=== PATIENT | female | born 1970 | race Caucasian/White ===

== ENCOUNTER → 2017-03-15 | Outpatient (CLI) | payer OTHER ==
[~2017-03-15] MED LIST: NONE PER PT
== END | disposition home or self-care (01) ==
LOC: STAR 07:49
PROVIDERS: ATTEND Obstetrics & Gynecology Female Pelvic Medicine and Reconstructive Surgery
DX: Z02.9 Encounter for administrative examinations, unspecified (principal)

== ENCOUNTER 2017-03-19 08:59 | Day surgery (SDC) | payer OTHER ==
[~2017-03-19] VITALS: Ht 152.4 cm; Wt 61.5 kg
[~2017-03-19 08:59] MED LIST changes: +BUPIVACAINE/PF-EPI 0.25% 1:200K ONE; +FENTANYL PF 250 MCG/5ML ONE; +MIDAZOLAM 1 MG/ML, 2ML ONE
[2017-03-19] MEDS ORDERED: LACTATED RINGERS 1,000 ML IV SCH (09:23)
[2017-03-19 09:38] LABS: HCG UR OBC PASS
[2017-03-19 09:51] VITALS: BP 149/89
[2017-03-19] MEDS ORDERED: OMEP-110 PO (09:51)
[2017-03-19] MEDS ORDERED: ONDANSETRON 2MG/ML, 2ML ONE (11:38)
[2017-03-19] MEDS ORDERED: CEFAZOLIN 1,000 MG ONE (11:38)
[2017-03-19] MEDS ORDERED: DEXAMETHASONE 4 MG/ML, 1ML ONE (11:38)
[2017-03-19] MEDS ORDERED: ROCURONIUM 10 MG/ML ONE (11:38)
[2017-03-19] MEDS ORDERED: PROPOFOL 10 MG/ML, 20ML ONE (11:38)
[2017-03-19] MEDS ORDERED: KETOROLAC 30 MG/1 ML ONE (11:38)
[2017-03-19] MEDS ORDERED: SUCCINYLCHOLINE 20 MG/ML, 10ML ONE (11:38)
[2017-03-19] MEDS ORDERED: BUPIVACAINE/PF-EPI 0.25% 1:200K INFIL ONE (12:00)
[2017-03-19] MEDS ORDERED: METOCLOPRAMIDE 5 MG/ML, 2ML IV PRN (12:30)
[2017-03-19] MEDS ORDERED: hydrALAzine 20 MG/ML, 1ML IV PRN (12:30)
[2017-03-19] MEDS ORDERED: MIDAZOLAM 1 MG/ML, 2ML IV PRN (12:30)
[2017-03-19] MEDS ORDERED: ACETAMINOPHEN 325 MG TABLET PO PRN ×2 (12:30→15:30)
[2017-03-19] MEDS ORDERED: LABETALOL 5MG/ML, 20ML IV PRN (12:30)
[2017-03-19] MEDS ORDERED: ONDANSETRON 2MG/ML, 2ML IVPush PRN ×2 (12:30→15:30)
[2017-03-19] MEDS ORDERED: OXYcodone 5 MG/5 ML ORAL.SOL UDC PO PRN (12:30)
[2017-03-19] MEDS ORDERED: MEPERIDINE/PF 25MG/0.5ML IVPush PRN (12:30)
[2017-03-19] MEDS ORDERED: HYDROmorphone 1 MG/ML, 1ML IV PRN (12:30)
[2017-03-19] MEDS ORDERED: PROMETHAZINE 25 MG/ML, 1ML IV PRN (12:30)
[2017-03-19] MEDS ORDERED: OXYcodone 5 MG/5 ML ORAL.SOL UDC ONE (13:06)
[2017-03-19] MEDS ORDERED: FENTANYL PF 100 MCG/2ML ONE (13:08)
[2017-03-19] MEDS: FENTANYL PF 100 MCG/2ML IV PRN ×2 (13:14→13:25)
[2017-03-19] MEDS ORDERED: HYDROmorphone 2 MG/ML, 1ML ONE (14:35)
[2017-03-19] MEDS ORDERED: HYDROcodone/APAP 5/325 TABLET PO PRN (15:30)
[2017-03-19] MEDS ORDERED: ZOLPIDEM 5MG TABLET PO PRN (15:30)
[2017-03-19] MEDS ORDERED: HYDROmorphone 2 MG/ML, 1ML IVPush PRN (15:30)
[2017-03-19] MEDS ORDERED: OXYcodone/APAP 5/325MG TABLET PO PRN (15:30)
[2017-03-19] MEDS ORDERED: IBUPROFEN 600 MG TABLET PO SCH (16:00)
[2017-03-19] MEDS ORDERED: SIMETHICONE 80 MG CHEW TAB PO SCH (16:00)
[2017-03-19] MEDS ORDERED: SODIUM CHLORIDE FLUSH 10ML SYR IVF SCH (21:00)
[2017-03-19] MEDS ORDERED: DOCUSATE 100 MG CAPSULE PO SCH (21:00)
== END 2017-03-19 18:00 | disposition home or self-care (01) ==
LOC: OUT 08:59
PROVIDERS: ATTEND Obstetrics & Gynecology Female Pelvic Medicine and Reconstructive Surgery
DX: N94.6 Dysmenorrhea, unspecified (principal); D25.9 Leiomyoma of uterus, unspecified; N83.8 Other noninflammatory disorders of ovary, fallopian tube and broad ligament; K21.9 Gastro-esophageal reflux disease without esophagitis
CPT/HCPCS: 58571; 81025; 88307; J0330; J0690; J1100; J1170; J1885; J2250; J2405; J2704; J3010; J7120

== ENCOUNTER → 2017-08-22 | Outpatient (CLI) | payer OTHER ==
[~2017-08-22] MED LIST changes: -BUPIVACAINE/PF-EPI 0.25% 1:200K ONE; -FENTANYL PF 250 MCG/5ML ONE; -MIDAZOLAM 1 MG/ML, 2ML ONE; +OMEP-110 PO
== END | disposition home or self-care (01) ==
LOC: CFH 07:59
PROVIDERS: ATTEND Obstetrics & Gynecology Gynecology
DX: Z12.31 Encounter for screening mammogram for malignant neoplasm of breast (principal); Z80.3 Family history of malignant neoplasm of breast
CPT/HCPCS: G0202

== ENCOUNTER → 2018-09-25 | Outpatient (CLI) | payer OTHER | END | disposition home or self-care (01) | LOC: CFH 09:21 | PROVIDERS: ATTEND Obstetrics & Gynecology Gynecology | DX: Z12.31 Encounter for screening mammogram for malignant neoplasm of breast (principal); Z80.3 Family history of malignant neoplasm of breast | CPT/HCPCS: 77063; 77067 ==

== ENCOUNTER → 2019-11-11 | Outpatient (CLI) | payer OTHER | END | disposition home or self-care (01) | LOC: CFH 08:11 | PROVIDERS: ATTEND Family Medicine | DX: Z12.31 Encounter for screening mammogram for malignant neoplasm of breast (principal) | CPT/HCPCS: 77063; 77067 ==

== ENCOUNTER → 2021-01-19 | Outpatient (CLI) | payer OTHER | END | disposition home or self-care (01) | LOC: CFH 10:17 | PROVIDERS: ATTEND Family Medicine | DX: Z12.31 Encounter for screening mammogram for malignant neoplasm of breast (principal) | CPT/HCPCS: 77063; 77067 ==